=== PATIENT | female | born 1955 | race Caucasian/White ===

== ENCOUNTER 2020-07-12 07:03 | Emergency (ER) | payer MEDICAID ==
[~2020-07-12] VITALS: Ht 162.6 cm; Wt 95.0 kg
[2020-07-12] MEDS ORDERED: ALBUTEROL (0.083%) 2.5MG/3ML NEB HHN STA (07:27)
[2020-07-12] MEDS ORDERED: IPRATROPIUM BROMIDE (0.02%) 0.5MG/2.5ML NEB HHN STA (07:27)
[2020-07-12] MEDS ORDERED: SODIUM CHLORIDE 0.9% 250 ML IV ONE (07:45)
[2020-07-12 08:54] LABS: BASOPHILS % 0.6 % (0.0-2.0); EOSINOPHILS % 3.5 % (0.0-5.0); HEMATOCRIT. 28.5 % (36.0-48.0); HEMOGLOBIN. 9.9 g/dL (12.0-16.0); LYMPHOCYTES % 13.7 % (20.0-50.0); MEAN CORPUSCULAR HEMOGLOBIN 30.2 pg (28.0-32.0); MEAN PLATELET VOLUME 8.7 fl (7.4-10.4); MONOCYTES % 5.5 % (2.0-8.0); NEUTROPHILS % 76.7 % (40.0-76.0); PLATELET 256 x1000/uL (130-400); RED BLOOD CELL COUNT 3.27 mill/uL (4.2-5.4); RED CELL DISTRIBUTION WIDTH 14.1 % (11.6-14.6)
[2020-07-12 09:01] LABS: CHLORIDE 110 mEq/L (98-107)
[2020-07-12 10:37] LABS: CLARITY URINE CLEAR (CLEAR); COLOR URINE YELLOW (YELLOW); KETONES URINE NEGATIVE (NEGATIVE); LEUKOCYTE ESTERASE URINE TRACE (NEGATIVE); NITRITE URINE NEGATIVE (NEGATIVE); OCCULT BLOOD URINE NEGATIVE (NEGATIVE); PROTEIN URINE NEGATIVE (NEGATIVE); SPECIFIC GRAVITY URINE 1.016 (1.005-1.030); UROBILINOGEN URINE 0.2 E.U./dL (0.2-1.0)
[2020-07-12 11:21] VITALS: BP 130/54
== END 2020-07-12 12:09 | disposition home or self-care (01) ==
LOC: ER 07:13
DX: D64.9 Anemia, unspecified (principal); E11.9 Type 2 diabetes mellitus without complications
CPT/HCPCS: 36415; 71045; 80053; 81003; 83880; 84484; 85025; 93005; 94640; 96360; 99285; J7040; Z7610

== ENCOUNTER 2022-10-28 13:07 | Inpatient (IN) | payer MEDICAID ==
[~2022-10-28] VITALS: Ht 165.1 cm; Wt 80.3 kg
[2022-10-28] MEDS ORDERED: ONDANSETRON HCL 4MG/2ML INJ IV STA (13:35)
[2022-10-28] MEDS ORDERED: MORPHINE SULFATE 4 MG/ML CPJ (NOT FOR IM USE) IV STA (13:35)
[2022-10-28] MEDS ORDERED: OSELTAMIVIR 75MG CAPSULE PO ONE (13:45)
[2022-10-28] MEDS ORDERED: CEFTRIAXONE 1 G PREMIX 50 ML IV ONE (13:45)
[2022-10-28] MEDS ORDERED: SODIUM CHLORIDE 0.9% 1000ML BAG (SEPSIS BOLUS) IV ONE (13:45)
[2022-10-28] MEDS ORDERED: AZITHROMYCIN 500MG/250ML 250 ML IV ONE (13:45)
[2022-10-28 15:05] LABS: HEMATOCRIT. 28.8 % (36.0-48.0); HEMOGLOBIN. 9.5 g/dL (12.0-16.0); MEAN CORPUSCULAR HEMOGLOBIN 27.4 pg (28.0-32.0); MEAN CORPUSCULAR VOLUME 83.1 fL (81.0-99.0); MEAN PLATELET VOLUME 7.9 fl (7.4-10.4); PLATELET 207 x1000/uL (130-400); RED BLOOD CELL COUNT 3.47 mill/uL (4.2-5.4); RED CELL DISTRIBUTION WIDTH 16.1 % (11.6-14.6)
[2022-10-28 15:15] LABS: INR 1.1; PROTHROMBIN TIME 11.4 sec (9.6-11.0)
[2022-10-28 15:16] LABS: CHLORIDE 109 mEq/L (98-107)
[2022-10-28 16:58] LABS: CLARITY URINE CLOUDY (CLEAR); COLOR URINE YELLOW (YELLOW); KETONES URINE TRACE (NEGATIVE); LEUKOCYTE ESTERASE URINE 3+ (NEGATIVE); NITRITE URINE POSITIVE (NEGATIVE); OCCULT BLOOD URINE 1+ (NEGATIVE); PROTEIN URINE 2+ (NEGATIVE); SPECIFIC GRAVITY URINE 1.015 (1.005-1.030)
[2022-10-28 17:09] LABS: PLATELET ESTIMATE NORMAL
[2022-10-29] MEDS: HYDROCODONE/ACETAMINOPHEN 5/325MG TABLET PO PRN (08:58)
[2022-10-29] MEDS ORDERED: ACETAMINOPHEN 325MG TABLET PO PRN (09:15)
[2022-10-29] MEDS ORDERED: ONDANSETRON HCL 4MG/2ML INJ IV PRN (09:15)
[2022-10-29] MEDS: SODIUM CHLORIDE 0.45% 1,000 ML IV SCH ×2 (09:16→20:37)
[2022-10-29] MEDS ORDERED: CEFTRIAXONE 1 G PREMIX 50 ML IV SCH (13:00)
[2022-10-29] MEDS ORDERED: DIPHENHYDRAMINE 50MG CAPSULE PO PRN (20:30)
[2022-10-30] VITALS (7 sets, daily range): BP systolic 114–160; BP diastolic 56–66
[2022-10-30] MEDS: HYDROCODONE/ACETAMINOPHEN 5/325MG TABLET PO PRN ×2 (00:29→16:10)
[2022-10-30] MEDS ORDERED: DEXTROSE 50% WATER 50ML SYRINGE IV PRN (02:15)
[2022-10-30] MEDS: SODIUM CHLORIDE 0.9% 1,000 ML IV SCH ×2 (02:42→15:35)
[2022-10-30] MEDS: BLOOD SUGAR DIAGNOSTIC STRIP TEST SCH ×4 (06:46→20:23)
[2022-10-30] MEDS: INSULIN LISPRO 100 UNITS/ML SUBCUT SCH ×4 (07:34→20:22)
[2022-10-30] MEDS ORDERED: *PATIENT'S OWN MEDICATION STORAGE XX SCH (08:15)
[2022-10-30] MEDS ORDERED: NALOXONE HCL 0.4MG/ML VIAL IV PRN (08:15)
[2022-10-30 08:53] LABS: BASOPHILS % 0.4 % (0.0-2.0); EOSINOPHILS % 3.4 % (0.0-5.0); HEMATOCRIT. 25.9 % (36.0-48.0); HEMOGLOBIN. 8.6 g/dL (12.0-16.0); MEAN CORPUSCULAR HEMOGLOBIN 27.5 pg (28.0-32.0); MEAN CORPUSCULAR VOLUME 82.9 fL (81.0-99.0); MEAN PLATELET VOLUME 8.5 fl (7.4-10.4); MONOCYTES % 8.3 % (2.0-8.0); NEUTROPHILS % 72.9 % (40.0-76.0); PLATELET 163 x1000/uL (130-400); RED BLOOD CELL COUNT 3.12 mill/uL (4.2-5.4)
[2022-10-30] MEDS: CEFTRIAXONE 1,000 MG in DEXTROSE 5% WATER 50 ML IV SCH (11:33)
[2022-10-30] MEDS: DOCUSATE SODIUM 250MG CAPSULE PO SCH ×2 (11:33→17:00)
[2022-10-30] MEDS: QUETIAPINE FUMARATE 50MG TABLET PO SCH (20:20)
[2022-10-31] VITALS: BP 149/67
[2022-10-31] MEDS: SODIUM CHLORIDE 0.9% 1,000 ML IV SCH ×2 (03:58→18:15)
[2022-10-31 04:00] VITALS: BP 152/62
[2022-10-31] MEDS: BLOOD SUGAR DIAGNOSTIC STRIP TEST SCH ×4 (06:32→21:00)
[2022-10-31 06:48] LABS: BASOPHILS % 0.5 % (0.0-2.0); EOSINOPHILS % 4.2 % (0.0-5.0); HEMATOCRIT. 25.1 % (36.0-48.0); HEMOGLOBIN. 8.4 g/dL (12.0-16.0); LYMPHOCYTES % 14.6 % (20.0-50.0); MEAN PLATELET VOLUME 7.8 fl (7.4-10.4); NEUTROPHILS % 72.7 % (40.0-76.0); PLATELET 186 x1000/uL (130-400); RED CELL DISTRIBUTION WIDTH 15.5 % (11.6-14.6)
[2022-10-31] MEDS: INSULIN LISPRO 100 UNITS/ML SUBCUT SCH ×4 (07:10→21:00)
[2022-10-31 08:00] VITALS: BP 146/67
[2022-10-31] MEDS: CEFTRIAXONE 1,000 MG in DEXTROSE 5% WATER 50 ML IV SCH (09:34)
[2022-10-31] MEDS: DOCUSATE SODIUM 250MG CAPSULE PO SCH ×2 (09:35→16:42)
[2022-10-31] MEDS: HYDROCODONE/ACETAMINOPHEN 5/325MG TABLET PO PRN (09:37)
[2022-10-31 12:00] VITALS: BP 156/60
[2022-10-31 16:00] VITALS: BP 171/74
[2022-10-31 20:00] VITALS: BP 134/74
[2022-10-31] MEDS: QUETIAPINE FUMARATE 50MG TABLET PO SCH (21:00)
[2022-11-01] VITALS: BP 148/66
[2022-11-01 04:00] VITALS: BP 162/60
[2022-11-01] MEDS: BLOOD SUGAR DIAGNOSTIC STRIP TEST SCH ×4 (07:24→21:34)
[2022-11-01] MEDS: INSULIN LISPRO 100 UNITS/ML SUBCUT SCH ×4 (07:24→21:00)
[2022-11-01] MEDS: SODIUM CHLORIDE 0.9% 1,000 ML IV SCH (07:35)
[2022-11-01] MEDS ORDERED: LIDOCAINE HCL/PF 1% 10 MG/ML 5ML VIAL ONE (07:43)
[2022-11-01 08:00] VITALS: BP 152/58
[2022-11-01] MEDS: CEFTRIAXONE 1,000 MG in DEXTROSE 5% WATER 50 ML IV SCH (09:20)
[2022-11-01] MEDS: DOCUSATE SODIUM 250MG CAPSULE PO SCH ×2 (09:21→18:43)
[2022-11-01] MEDS: HYDROCODONE/ACETAMINOPHEN 5/325MG TABLET PO PRN ×2 (09:22→18:45)
[2022-11-01 12:00] VITALS: BP 143/61
[2022-11-01 16:00] VITALS: BP 136/49
[2022-11-01 20:00] VITALS: BP 180/73
[2022-11-01] MEDS ORDERED: CLONIDINE 0.1MG TABLET PO PRN (21:18)
[2022-11-01] MEDS: QUETIAPINE FUMARATE 50MG TABLET PO SCH (21:34)
[2022-11-02 00:15] VITALS: BP 139/55
[2022-11-02 05:28] VITALS: BP 148/69
[2022-11-02] MEDS: BLOOD SUGAR DIAGNOSTIC STRIP TEST SCH ×3 (07:20→17:31)
[2022-11-02] MEDS: INSULIN LISPRO 100 UNITS/ML SUBCUT SCH ×3 (07:50→17:31)
[2022-11-02 08:00] VITALS: BP 146/50
[2022-11-02] MEDS: SODIUM CHLORIDE 0.9% 1,000 ML IV SCH (10:15)
[2022-11-02] MEDS: CEFTRIAXONE 1,000 MG in DEXTROSE 5% WATER 50 ML IV SCH (11:04)
[2022-11-02] MEDS: DOCUSATE SODIUM 250MG CAPSULE PO SCH ×2 (11:04→17:38)
[2022-11-02] MEDS: HYDROCODONE/ACETAMINOPHEN 5/325MG TABLET PO PRN ×2 (11:09→17:39)
[2022-11-02 12:00] VITALS: BP 143/56
[2022-11-02 16:00] VITALS: BP 124/64
[2022-11-02 17:56] VITALS: BP 124/64
== END 2022-11-02 18:45 | disposition home health service (06) | DRG 720 ==
LOC: ER 13:07 → MICUSO 17:42 → EDBEDREQ 17:51 → EDBEDREQTM 17:51 → EDBEDREQ 18:49 → 6EST 10-30 01:15
PROVIDERS: ADMIT Internal Medicine; ATTEND Internal Medicine
PROC: 02HV33Z Insertion of Infusion Device into Superior Vena Cava, Percutaneous Approach (ICD-10-PCS; principal; 2022-11-01)
PROC: B548ZZA Ultrasonography of Superior Vena Cava, Guidance (ICD-10-PCS; 2022-11-01)
DX: A41.51 Sepsis due to Escherichia coli [E. coli] (principal); N17.0 Acute kidney failure with tubular necrosis; E44.0 Moderate protein-calorie malnutrition; D64.9 Anemia, unspecified; F31.9 Bipolar disorder, unspecified; E11.9 Type 2 diabetes mellitus without complications; N39.0 Urinary tract infection, site not specified; Z20.822 Contact with and (suspected) exposure to COVID-19; Z85.819 Personal history of malignant neoplasm of unspecified site of lip, oral cavity, and pharynx; Z68.29 Body mass index [BMI] 29.0-29.9, adult
CPT/HCPCS: 36415; 36573; 71045; 74176; 76770; 80048; 80053; 81003; 82962; 83036; 83605; 83880; 84145; 84484; 85025; 87077; 87186; 87426; 87804; 93005; 99285; C1725; C9803; J0456; J0696; J1815; J2270; J2405; J3490; J7030; J7060; Q0163